=== PATIENT | male | born 1945 | race Caucasian/White ===

== ENCOUNTER 2021-02-15 16:28 | Emergency (ER) | payer MEDICARE ==
[2021-02-15] MEDS ORDERED: Sodium Chloride 0.9% 10 ML Syringe FLUSH PRN (18:28)
[2021-02-15] MEDS ORDERED: Piperacillin/Tazobactam 4.5 GM in Sodium Chloride 0.9% 100 ML IV ONE (19:06)
--- NOTE | 2021-02-15 19:25 | CR ---
Chest: Portable view of the chest was obtained. Comparison: Prior chest x-ray 10/21/12. Slight scarring is seen within the left lung base. Heart size and mediastinum are stable. Right-sided central line is seen. AICD is present. Nodule is noted within the left midlung most likely representing granuloma as it appears somewhat dense. Lungs show no acute parenchymal change. Bony structures show nothing acute. Impression: 1. Findings as noted above. 2. Nothing acute is appreciated on portable chest x-ray. Diagnostic code #2
[2021-02-15] MEDS ORDERED: Sodium Chloride 0.9% 1,000 ML IV STA (19:29)
--- NOTE | 2021-02-15 20:30 | EDM.PDOC ---
ED HPI GENERAL MEDICAL PROBLEM - General Chief Complaint: Lower Extremity Injury/Pain Stated Complaint: FEVER/SWELLING IN BOTH LEGS Time Seen by Provider: 02/15/21 18:23 Source of Information: Reports: Patient, RN Notes Reviewed History Limitations: Reports: No Limitations - History of Present Illness INITIAL COMMENTS - FREE TEXT/NARRATIVE: 75-year-old male presenting to the emergency department from a hemodialysis with complaints of fever and redness, swelling, warmth, and drainage to his left lower extremity. Patient reports he has chronic edema to his bilateral lower ex tremities, however the course of last week he has developed increased redness and pain to his left lower extremity. He is unable to walk on it due to pain. He has been experiencing drainage from the area as well for which the patient's has been doing dressing changes. Patient denies any known fever, however on arrival to ER temperature was 99.7. Reported that he had a fever at dialysis as well, however we do not have documentation of this. Patient denies any nausea, vomiting, or diarrhea. He is scheduled to dialyze again tomorrow, however he normally only dialyzes 3 days a week. Patient does not produce urine. lower extremities Pain Score (Numeric/FACES): 7 - Related Data Allergies Allergy/AdvReac Type Severity Reaction Status Date / Time aspirin Allergy Hives Verified 02/15/21 17:36 Social & Family History - Tobacco Use Tobacco Use Status *Q: Former Tobacco User Used Tobacco, but Quit: Yes Month/Year Tobacco Last Used: 2011 - Recreational Drug Use Recreational Drug Use: No Review of Systems - Review of Systems Review Of Systems: See Below Constitutional: Reports: No Symptoms. Denies: Chills, Fever Eyes: Reports: No Symptoms Ears: Reports: No Symptoms Nose: Reports: No Symptoms Mouth/Throat: Reports: No Symptoms Respiratory: Reports: No Symptoms Cardiovascular: Reports: No Symptoms GI/Abdominal: Reports: No Symptoms. Denies: Nausea, Vomiting Genitourinary: Reports: No Symptoms Musculoskeletal: Reports: No Symptoms Skin: Reports: Other (Redness, swelling, pain, drainage to left lower extremity) Neurological: Reports: No Symptoms Psychiatric: Reports: No Symptoms ED EXAM, GENERAL - Physical Exam Exam: See Below Exam Limited By: No Limitations General Appearance: Alert, WD/WN, No Apparent Distress Respiratory/Chest: No Respiratory Distress, Lungs Clear, Normal Breath Sounds, No Accessory Muscle Use, Chest Non-Tender Cardiovascular: Normal Peripheral Pulses, Regular Rate, Rhythm, No Edema, No Gallop, No JVD, No Murmur, No Rub GI/Abdominal: Normal Bowel Sounds, Soft, Non-Tender, No Organomegaly, No Distention, No Abnormal Bruit, No Mass Extremities: Other (3 cm necrotic lesion to the lateral aspect of the left lower extremity with purulent drainage present when dressing removed. Small superficial open area to medial aspect. Diffuse erythema and swelling of the left lower extremity from below the knee to above the ankle. 2+ pitting edema. ) Neurological: Alert, Oriented, CN II-XII Intact, Normal Cognition, Normal Gait, Normal Reflexes, No Motor/Sensory Deficits Psychiatric: Normal Affect, Normal Mood Course - Vital Signs Last Recorded V/S: Last Vital Signs Temp 99.7 F 02/15/21 17:32 Pulse 106 H 02/15/21 17:32 Resp 18 02/15/21 17:32 BP 103/52 L 02/15/21 17:32 Pulse Ox 93 L 02/15/21 17:32 - Orders/Labs/Meds Labs: Laboratory Tests 02/15/21 02/15/21 02/15/21 Range/Units 18:11 18:11 18:11 WBC 20.28 H (4.23-9.07) K/mm3 RBC 3.85 L (4.63-6.08) M/mm3 Hgb 12.2 L (13.7-17.5) gm/dl Hct 39.2 L (40.1-51.0) % MCV 101.8 H (79.0-92.2) fl MCH 31.7 (25.7-32.2) pg MCHC 31.1 L (32.2-35.5) g/dl RDW Std Deviation 60.4 H (35.1-43.9) fL Plt Count 264 (163-337) K/mm3 MPV 11.5 (9.4-12.3) fl Neutrophils % (Manual) 88 H (40-60) % Band Neutrophils % 0 (0-10) % Lymphocytes % (Manual) 7 L (20-40) % Atypical Lymphs % 0 % Monocytes % (Manual) 5 (2-10) % Eosinophils % (Manual) 0 L (0.8-7.0) % Basophils % (Manual) 0 L (0.2-1.2) Platelet Estimate Adequate Anisocytosis 1+ slight Macrocytosis 1+ slight RBC Morph Comment Not Reportable PT 30.1 H (9.7-12.0) SECONDS INR 2.87 APTT 41.3 H (21.7-31.4) SECONDS Sodium 137 (136-145) mEq/L Potassium 4.4 (3.5-5.1) mEq/L Chloride 98 (98-107) mEq/L Carbon Dioxide 26 (21-32) mEq/L Anion Gap 17.4 H (5-15) BUN 34 H (7-18) mg/dL Creatinine 2.9 H (0.7-1.3) mg/dL Est Cr Clr Drug Dosing 27.11 mL/min Estimated GFR (MDRD) 21 (>60) mL/min BUN/Creatinine Ratio 11.7 L (14-18) Glucose 293 H (70-99) mg/dL Lactic Acid (0.4-2.0) mmol/L Calcium 8.8 (8.5-10.1) mg/dL Total Bilirubin 0.8 (0.2-1.0) mg/dL AST 26 (15-37) U/L ALT 24 (16-63) U/L Alkaline Phosphatase 101 (46-116) U/L C-Reactive Protein 41.0 H* (<1.0) mg/dL Total Protein 7.7 (6.4-8.2) g/dl Albumin 2.3 L (3.4-5.0) g/dl Globulin 5.4 gm/dL Albumin/Globulin Ratio 0.4 L (1-2) SARS-CoV-2 RNA (KANE) (NEGATIVE) 02/15/21 02/15/21 Range/Units 18:11 19:23 WBC (4.23-9.07) K/mm3 RBC (4.63-6.08) M/mm3 Hgb (13.7-17.5) gm/dl Hct (40.1-51.0) % MCV (79.0-92.2) fl MCH (25.7-32.2) pg MCHC (32.2-35.5) g/dl RDW Std Deviation (35.1-43.9) fL Plt Count (163-337) K/mm3 MPV (9.4-12.3) fl Neutrophils % (Manual) (40-60) % Band Neutrophils % (0-10) % Lymphocytes % (Manual) (20-40) % Atypical Lymphs % % Monocytes % (Manual) (2-10) % Eosinophils % (Manual) (0.8-7.0) % Basophils % (Manual) (0.2-1.2) Platelet Estimate Anisocytosis Macrocytosis RBC Morph Comment PT (9.7-12.0) SECONDS INR APTT (21.7-31.4) SECONDS Sodium (136-145) mEq/L Potassium (3.5-5.1) mEq/L Chloride (98-107) mEq/L Carbon Dioxide (21-32) mEq/L Anion Gap (5-15) BUN (7-18) mg/dL Creatinine (0.7-1.3) mg/dL Est Cr Clr Drug Dosing mL/min Estimated GFR (MDRD) (>60) mL/min BUN/Creatinine Ratio (14-18) Glucose (70-99) mg/dL Lactic Acid 4.1 H* (0.4-2.0) mmol/L Calcium (8.5-10.1) mg/dL Total Bilirubin (0.2-1.0) mg/dL AST (15-37) U/L ALT (16-63) U/L Alkaline Phosphatase (46-116) U/L C-Reactive Protein (<1.0) mg/dL Total Protein (6.4-8.2) g/dl Albumin (3.4-5.0) g/dl Globulin gm/dL Albumin/Globulin Ratio (1-2) SARS-CoV-2 RNA (KANE) Negative (NEGATIVE) Meds: Medications Discontinued Medications Generic Name Dose Route Start Last Admin Trade Name Freq PRN Reason Stop Dose Admin Piperacillin Sod/Tazobactam 100 mls @ 200 mls/hr 02/15/21 19:06 02/15/21 19:19 Sod 4.5 gm/ Sodium Chloride IV 02/15/21 19:35 200 mls/hr ONETIME ONE Administration Sodium Chloride 1,000 mls @ 126 mls/hr 02/15/21 19:29 Normal Saline IV 02/16/21 03:25 NOW STA Vancomycin HCl 500 mg/ Sodium 100 mls @ 100 mls/hr 02/15/21 21:00 02/15/21 20:22 Chloride IV 02/15/21 21:59 100 mls/hr ONETIME ONE Administration Vancomycin HCl 1 gm/ Sodium 250 mls @ 250 mls/hr 02/15/21 20:00 02/15/21 20:23 Chloride IV 250 mls/hr ONETIME RENETTA Administration Sodium Chloride 10 ml 02/15/21 18:28 02/15/21 18:43 Sodium Chloride 0.9% 10 Ml Syringe FLUSH 10 ml ASDIRECTED PRN Administration Keep Vein Open Vancomycin HCl 1 dose 02/15/21 19:00 Pharmacy To Dose - Vancomycin .XX 02/15/21 19:01 ONETIME ONE - Re-Assessments/Exams Free Text/Narrative Re-Assessment/Exam: Patient is a 75-year-old male presenting to the emergency department with complaints of pain, swelling, and drainage of his left lower extremity with grade fever. On exam, patient has diffuse edema and erythema throughout the lower extremity extending from below the knee to above the ankle. There is a approximate 3 cm necrotic lesion on the lateral aspect as well as superficial open area to the medial aspect. Small amount of purulent drainage was present on the dressing when removed. I have ordered septic work-up. 02/15/211929 Hematology is significant for WBC elevated at 20.28, hemoglobin 12.2, lactic acid 4.1, CRP 41.0. Patient rules in for severe sepsis. blood pressures have remained stable for the last being 101/70. Since patient is hemodialysis patient and he is not hypotensive, fluid bolus would not be appropriate at this time. I am ordering vancomycin and Zosyn for treatment of cellulitis. He will be receiving approximately 450 mils of fluid with these infusions. Call has been placed to [facility] in [place] to discuss transfer. They will call back when they know if a bed is available. 02/15/21 20:30 Received from [facility] in [place]. They do have an available bed for the patient. Case was discussed with hospitalist, Dr. De La Cruz. She has accepted the patient for transfer. Patient will transport by ground ambulance. Vital signs remained stable and patient is resting comfortably. Departure - Departure Time of Disposition: 20:30 Disposition: Home, Self-Care 01 Condition: Good Clinical Impression: End stage renal failure on dialysis Cellulitis Qualifiers: Site of cellulitis: extremity Site of cellulitis of extremity: lower extremity Laterality: left Qualified Code(s): L03.116 - Cellulitis of left lower limb Sepsis Qualifiers: Sepsis type: sepsis due to unspecified organism Sepsis acute organ dysfunction status: unspecified Qualified Code(s): A41.9 - Sepsis, unspecified organism - Discharge Information Referrals: Dion Hernandez MD [Primary Care Provider] - Forms: ED Department Discharge Sepsis Event Note (ED) - Evaluation Sepsis Screening Result: No Definite Risk
== END 2021-02-15 21:03 ==
LOC: JD.ED 16:28
DX: A41.9 Sepsis, unspecified organism (principal); N18.6 End stage renal disease; L03.116 Cellulitis of left lower limb; Z99.2 Dependence on renal dialysis; Z79.82 Long term (current) use of aspirin; Z87.891 Personal history of nicotine dependence; Z20.822 Contact with and (suspected) exposure to COVID-19
CPT/HCPCS: 36415; 71045; 80053; 83605; 85007; 85027; 85610; 85730; 86140; 87040; 96365; 96367; 99284; J2543; J3370; J7050; U0002